=== PATIENT | male | born 1985 | race Native Hawaiian/Other Pacific Islander ===

== ENCOUNTER 2020-08-21 11:55 | Outpatient (CLI) | payer BC, OTHER | END 2020-08-21 23:58 | disposition home or self-care (01) | LOC: INF 11:55 | PROVIDERS: ATTEND Internal Medicine | DX: Z23 Encounter for immunization (principal) | CPT/HCPCS: 96372 ==

== ENCOUNTER 2020-09-18 11:13 | Outpatient (CLI) | payer BC, OTHER | END 2020-09-18 21:57 | disposition home or self-care (01) | LOC: INF 11:13 | PROVIDERS: ATTEND Internal Medicine | DX: Z23 Encounter for immunization (principal) | CPT/HCPCS: 96372 ==